=== PATIENT | female | born 1975 | race Hispanic/Latino ===

== ENCOUNTER 2018-04-10 21:53 | Emergency (ER) | payer BC ==
[2018-04-10 21:53] VITALS: BMI 32.9
[2018-04-10] MEDS ORDERED: DiphenhydrAMINE 50 mg/ml Inj IVP STA (22:45)
[2018-04-10 23:00] LABS: BASO # 0.02 K/mm3 (0.0-2.0); BASO % 0.2 % (0.0-3.0); EOS # 0.1 (0.0-0.7); EOS % 0.7 % (1.5-5.0); GRAN # 7.5 (1.4-6.5); GRAN % 68.5 % (50.0-68.0); HEMOGLOBIN 15.1 g/dL (12.0-16.0); LYMPH # 2.8 (1.2-3.4); LYMPH % 25.9 % (22.0-35.0); MEAN CELL VOLUME 86.9 fl (80.0-105.0); MEAN CORPUSCULAR HEMOGLOBIN 29.5 pg (25.0-35.0); MEAN CORPUSCULAR HGB CONC 33.9 g/dl (31.0-37.0); MEAN PLATELET VOLUME 9.5 fl (7.0-11.0); MONO # 0.5 (0.1-0.6); MONO % 4.7 % (1.0-6.0); RBC 5.12 10^6/uL (3.5-6.1); RED CELL DISTRIBUTION WIDTH 13.7 % (11.5-14.5); WHITE BLOOD COUNT 10.9 10^3/uL (4.5-11.0)
--- NOTE | 2018-04-10 23:45 | ED PDOC ---
Arrival/HPI - General Chief Complaint: Allergic Reaction Time Seen by Provider: 04/10/18 22:11 Historian: Patient - History of Present Illness Narrative History of Present Illness (Text): 04/10/18 23:44 42 yo F presents c/o diffuse red raised itchy rash to her body which started suddenly this evening and quickly spread all over her body. Reports that only thing she did different was eating peppermint Ghiardelli chocolate earlier. Otherwise reports no fevers, facial/tongue/throat swelling, SOB, dyspnea, taking new foods/medications, changes in soaps and lotions. PMD Dain Past Medical History - Infectious Disease Hx of Infectious Diseases: None - Pulmonary Hx Asthma: Yes - Gastrointestinal Hx Crohn's Disease: No (MISDIAGNOSED) - Psychiatric Hx Psychophysiologic Disorder: No Hx Depression: No Hx Emotional Abuse: No Hx Physical Abuse: No Hx Substance Use: No - Past Surgical History Past Surgical History: No Previous - Anesthesia Hx Anesthesia: Yes Hx Anesthesia Reactions: No Hx Malignant Hyperthermia: No - Suicidal Assessment Feels Threatened In Home Enviroment: No Family/Social History Family/Social History: No Known Family HX Smoking Status: Never Smoked Hx Alcohol Use: Yes Hx Substance Use: No Allergies/Home Meds Allergies/Adverse Reactions: Allergies codeine Allergy (Verified 04/10/18 22:15) ANAPHYLAXIS Review of Systems - Review of Systems Constitutional: absent: Fatigue, Fevers Respiratory: absent: SOB, Cough Cardiovascular: absent: Chest Pain, Palpitations Musculoskeletal: absent: Arthralgias, Back Pain, Neck Pain Skin: Rash, Pruritis. absent: Skin Lesions Physical Exam Vital Signs Temp Pulse Resp BP Pulse Ox 04/10/18 23:23 97.6 F 58 L 18 103/52 L 100 Temperature: Afebrile Blood Pressure: Normal Pulse: Regular Respiratory Rate: Normal Appearance: Positive for: Well-Appearing, Non-Toxic, Comfortable Pain Distress: None Mental Status: Positive for: Alert and Oriented X 3 - Systems Exam Head: Present: Atraumatic, Normocephalic Pupils: Present: PERRL Extroacular Muscles: Present: EOMI Conjunctiva: Present: Normal Mouth: Present: Moist Mucous Membranes Pharnyx: Present: Normal. No: Muffled/Hoarse Voice, Soft Palate/Uvular Edema Neck: Present: Normal Range of Motion Respiratory/Chest: Present: Clear to Auscultation, Good Air Exchange. No: Respiratory Distress, Accessory Muscle Use Cardiovascular: Present: Regular Rate and Rhythm, Normal S1, S2. No: Murmurs Abdomen: No: Tenderness, Distention, Peritoneal Signs Back: Present: Normal Inspection Upper Extremity: Present: Normal Inspection. No: Cyanosis, Edema Lower Extremity: Present: Normal Inspection. No: Edema Neurological: Present: GCS=15, CN II-XII Intact, Speech Normal Skin: Present: Warm, Dry, Rashes (+diffuse erythematous hives to the trunk and all 4 extremities), Normal Color Psychiatric: Present: Alert, Oriented x 3, Normal Insight, Normal Concentration Medical Decision Making ED Course and Treatment: 04/10/18 23:42 Plan : - Labs - IV - solumedrol IV - pepcid IV - benadryl IV On reevaluation, patient reports improvement of symptoms, denies any SOB, facial/tongue/throat swelling. On exam, patient remains awake alert and oriented 3 in no acute distress with noted improvement of rash. Advised to follow up with primary care physician in 1-2 days without fail. Advised to take medication as prescribed. Return to the emergency room at any time for any new or worsening symptoms. Patient states she fully agrees with and understands discharge instructions. States that she agrees with the plan and disposition. Verbalized and repeated discharge instructions and plan. I have given the patient opportunity to ask any additional questions. - Lab Interpretations Lab Results: 04/10/18 22:49 Lab Results 04/10/18 22:49: WBC 10.9, RBC 5.12, Hgb 15.1, Hct 44.5, MCV 86.9, MCH 29.5, MCHC 33.9, RDW 13.7, Plt Count 228, MPV 9.5, Gran % 68.5 H, Lymph % (Auto) 25.9, [place] % (Auto) 4.7, Eos % (Auto) 0.7 L, Baso % (Auto) 0.2, Gran # 7.50 H, Lymph # (Auto) 2.8, [place]on # (Auto) 0.5, Eos # (Auto) 0.1, Baso # (Auto) 0.02 - Medication Orders Current Medication Orders: Discontinued Medications Diphenhydramine HCl (Benadryl) 50 mg IVP STAT STA Stop: 04/10/18 22:46 Last Admin: 04/10/18 22:59 Dose: 50 mg IVP Administration Document 04/10/18 22:59 [place] (Rec: 04/10/18 22:59 [id number] Charges for Administration # of IVP Administrations 1 Famotidine (Pepcid) 20 mg IVP STAT STA Stop: 04/10/18 22:46 Last Admin: 04/10/18 22:59 Dose: 20 mg IVP Administration Document 04/10/18 22:59 [place] (Rec: 04/10/18 22:59 [id number] Charges for Administration # of IVP Administrations 1 Methylprednisolone (Solu-Medrol) 125 mg IVP ONCE ONE Stop: 04/10/18 22:46 Last Admin: 04/10/18 22:59 Dose: 125 mg IVP Administration Document 04/10/18 22:59 [place] (Rec: 04/10/18 22:59 [id number] Charges for Administration # of IVP Administrations 1 - PA / GEAR INSPECTOR / Resident Statement /DO has reviewed & agrees with the documentation as recorded. Disposition/Present on Arrival - Present on Arrival Any Indicators Present on Arrival: No History of DVT/PE: No History of Uncontrolled Diabetes: No Urinary Catheter: No History of Decub. Ulcer: No History Surgical Site Infection Following: None - Disposition Have Diagnosis and Disposition been Completed?: Yes Diagnosis: Allergic reaction to food Disposition: HOME/ ROUTINE Disposition Time: 01:15 Patient Plan: Discharge Condition: IMPROVED Discharge Instructions (ExitCare): Food Allergy Additional Instructions: Thank you for letting us take care of you today. You were treated for allergic reaction to food. The emergency medical care you received today was directed at your acute symptoms. If you were prescribed any medication, please fill it and take as directed. It may take several days for your symptoms to resolve. Return to the Emergency Department if your symptoms worsen, do not improve, or if you have any other problems. Please contact your doctor in 2 days for re-evaluation and follow up. Bring any paperwork you were given at discharge with you along with any medications you are taking to your follow up visit. Our treatment cannot replace ongoing medical care by a primary care provider (PCP) outside of the emergency department. Thank you for allowing the [facility] team to be part of your care today. Prescriptions: DiphenhydrAMINE [Benadryl] 25 mg PO TID #20 cap Famotidine [Pepcid] 40 mg PO DAILY #20 tablet predniSONE [predniSONE Tab] 60 mg PO DAILY #12 tab Referrals: Ty Gautam MD [Primary Care Provider] - Follow up with primary Forms: [employer] (Sy[place])
[2018-04-10 23:59] VITALS: RESP 17
[2018-04-11 00:04] LABS: ALB/GLOB RATIO 1.2 (1.1-1.8); ALBUMIN 3.8 g/dL (3.0-4.8); ALT/SGPT 20 U/L (7-56); AST/SGOT 20 U/L (14-36); BLOOD UREA NITROGEN 21 mg/dL (7-21); CALCIUM 8.9 mg/dL (8.4-10.5); GFR NON-AFRICAN AMERICAN > 60
[2018-04-11] MEDS ORDERED: Potassium Chloride 20 mEq/15 ml LIQ UD PO STA (00:22)
[2018-04-11 01:06] VITALS: BP 118/67; PULSE 82; TEMP 97.7; O2SAT 96
== END 2018-04-11 01:50 | disposition home or self-care (01) ==
LOC: ED 21:53
DX: T78.1XXA Other adverse food reactions, not elsewhere classified, initial encounter (principal); X58.XXXA Exposure to other specified factors, initial encounter
CPT/HCPCS: 80053; 85025; 96374; 96375; 99284; J1200; J2930